=== PATIENT | female | born 1990 | race Caucasian/White ===

== ENCOUNTER 2019-06-16 12:57 | Observation (INO) ==
[2019-06-16 14:19] LABS: Amphetamine Screen,Urine Negative ng/mL (Cutoff=1000); Barbiturate Screen,Urine Negative ng/mL (Cutoff=200); Benzodiazepines Screen,Urine Negative ng/mL (Cutoff=200); Cannabinoid Screen,Urine Negative ng/mL (Cutoff = 50); Cocaine Screen,Urine Negative ng/mL (Cutoff= 300); Opiate Screen,Urine Negative ng/mL (Cutoff=300); Phencyclidine Screen,Urine Negative ng/mL (Cutoff=25)
== END 2019-06-16 15:03 | disposition home or self-care (01) ==
LOC: 1NENULAB
PROVIDERS: ADMIT Advanced Practice Midwife; ATTEND Advanced Practice Midwife

== ENCOUNTER 2019-07-09 17:55 | Observation (INO) ==
[2019-07-09 19:21] LABS: Bilirubin,Urine Negative (Negative); Blood,Urine Moderate (Negative); Clarity,Urine Turbid (Clear); Color,Urine Yellow (Yellow); Glucose,Urine (UA) Normal (Normal); Ketones,Urine Negative (Negative); Leukocyte Esterase,Urine Small (Negative); Nitrite,Urine Negative (Negative); Protein,Urine Negative (Neg-Trace); Urobilinogen,Urine Normal (Normal)
[2019-07-09 19:22] LABS: Bacteria,Urine Few per hpf (None-Few); Hyaline Casts,Urine Few per lpf (None-Few); Squamous Epithelial Cell,Urine Many per lpf (None-Few)
[2019-07-09 19:32] LABS: Amorphous Sediment,Urine Moderate (Few); Amphetamine Screen,Urine Negative ng/mL (Cutoff=1000); Barbiturate Screen,Urine Negative ng/mL (Cutoff=200); Benzodiazepines Screen,Urine Negative ng/mL (Cutoff=200); Cannabinoid Screen,Urine Negative ng/mL (Cutoff = 50); Cocaine Screen,Urine Negative ng/mL (Cutoff= 300); Opiate Screen,Urine Negative ng/mL (Cutoff=300); Phencyclidine Screen,Urine Negative ng/mL (Cutoff=25)
== END 2019-07-09 20:51 | disposition home or self-care (01) ==
LOC: 1NENULAB
PROVIDERS: ADMIT Student in an Organized Health Care Education/Training Program; ATTEND Student in an Organized Health Care Education/Training Program

== ENCOUNTER 2019-07-10 02:31 | Observation (INO) | END 2019-07-10 07:03 | disposition home or self-care (01) | LOC: 1NENULAB | PROVIDERS: ADMIT Advanced Practice Midwife; ATTEND Advanced Practice Midwife ==

== ENCOUNTER 2019-07-13 14:17 | Observation (INO) ==
[2019-07-13 15:41] LABS: Amphetamine Screen,Urine Negative ng/mL (Cutoff=1000); Barbiturate Screen,Urine Negative ng/mL (Cutoff=200); Benzodiazepines Screen,Urine Negative ng/mL (Cutoff=200); Cannabinoid Screen,Urine Negative ng/mL (Cutoff = 50); Cocaine Screen,Urine Negative ng/mL (Cutoff= 300); Opiate Screen,Urine Negative ng/mL (Cutoff=300); Phencyclidine Screen,Urine Negative ng/mL (Cutoff=25)
== END 2019-07-13 17:24 | disposition home or self-care (01) ==
LOC: 1NENULAB
PROVIDERS: ADMIT Registered Nurse; ATTEND Registered Nurse

== ENCOUNTER 2019-07-20 22:01 | Inpatient (IN) ==
[~2019-07-20 22:01] MED LIST: *HR* Nalbuphine 10 MG/ML AMPUL IVP PRN; Famotidine 20 MG/2 ML VIAL IVP PRN; Lidocaine 1% 20 ML MDV INFILT PRN; Metoclopramide 10 MG/2 ML VIAL IVP PRN; Naloxone 0.4 MG/ML INJ IVP PRN; Ondansetron 4 MG/2 ML VIAL IVP PRN
[2019-07-20] MEDS ORDERED: Ringers Solution, Lactated 1,000 ML IVC SCH (22:15)
[2019-07-20] MEDS ORDERED: miSOPROStol 25 MCG TABLET PO SCH (22:45)
[2019-07-20 22:57] LABS: Amphetamine Screen,Urine Negative ng/mL (Cutoff=1000); Barbiturate Screen,Urine Negative ng/mL (Cutoff=200); Benzodiazepines Screen,Urine Negative ng/mL (Cutoff=200); Cannabinoid Screen,Urine Negative ng/mL (Cutoff = 50); Cocaine Screen,Urine Negative ng/mL (Cutoff= 300); Opiate Screen,Urine Negative ng/mL (Cutoff=300); Phencyclidine Screen,Urine Negative ng/mL (Cutoff=25)
[2019-07-20 22:59] LABS: Basophils % 0.3 %; Eosinophils # 0.1 K/mcL (0.0-0.6); Eosinophils % 0.6 %; Hematocrit 36.9 % (35.3-44.9); Hemoglobin 11.8 g/dL (11.5-15.4); Immature Granulocytes % 0.4 % (0-4); Lymphocytes % 25.9 %; Mean Corpuscular Hemoglobin 29.4 pg (28.0-33.3); Mean Platelet Volume 11.3 fL (9.4-12.4); Monocytes # 0.9 K/mcL (0.0-1.3); Monocytes % 7.7 %; Neutrophils # 7.6 K/mcL (1.6-8.9); Platelet Count 285 K/mcL (140-400); Red Blood Count 4.01 M/mcL (3.82-4.97); Segmented Neutrophils % 65.1 %; White Blood Count 11.6 K/mcL (4.3-11.1)
[2019-07-21] MEDS ORDERED: Naloxone 0.4 MG/ML INJ IVP PRN ×3 (01:40→20:12)
[2019-07-21] MEDS ORDERED: *HR* FentaNYL (PF) 100 MCG/2 ML VIAL EP ONE (01:40)
[2019-07-21] MEDS ORDERED: Ondansetron 4 MG/2 ML VIAL IVP PRN ×2 (01:40→20:12)
[2019-07-21] MEDS ORDERED: Ropivacaine/PF 0.2% 20 ML VIAL EP ONE (01:40)
[2019-07-21] MEDS ORDERED: EPHEDrine 50 MG/ML VIAL IVP PRN (01:40)
[2019-07-21] MEDS ORDERED: Ropivacaine/PF 0.2% 20 ML VIAL ONE (02:09)
[2019-07-21] MEDS ORDERED: *HR* FentaNYL (PF) 100 MCG/2 ML VIAL ONE ×2 (02:09→16:00)
[2019-07-21] MEDS: Epidural Premix (fent/bupiv) 110 ML EP SCH ×2 (02:40→11:09)
[2019-07-21] MEDS ORDERED: Oxytocin 20 units/ LR 1000 mL 20 UNIT/1,000 ML BAG IVC SCH ×3 (03:15→20:12)
[2019-07-21] MEDS ORDERED: CeFAZolin Premix DUPLEX 2,000 MG/50 ML BAG IVPB ONE (15:12)
[2019-07-21] MEDS ORDERED: Azithromycin 500 MG in 0.9 % Sodium Chloride 250 ML IVPB ONE (15:15)
[2019-07-21] MEDS ORDERED: *HR* Oxytocin 10 UNIT/ML VIAL IM ONE (15:28)
[2019-07-21] MEDS ORDERED: Chloroprocaine/PF 20 ML VIAL INFILT ONE (15:37)
[2019-07-21] MEDS ORDERED: Ringers Solution, Lactated 1,000 ML ONE (15:54)
[2019-07-21] MEDS ORDERED: *HR* Midazolam HCl 2 MG/2 ML VIAL ONE (15:59)
[2019-07-21] MEDS ORDERED: *HR* Morphine Sulfate/PF 10 MG/10 ML AMPUL ONE (16:26)
[2019-07-21] MEDS ORDERED: Acetaminophen IV 1,000 MG/100 ML INFUS..BTL IVPB ONE (17:26)
[2019-07-21] MEDS ORDERED: *HR* HYDROmorphone (PF) 1 MG/ML SYRINGE IVP PRN ×3 (17:26→20:12)
[2019-07-21] MEDS ORDERED: *HR* OxyCODONE/APAP 5/325 TABLET PO PRN ×2 (17:41→20:12)
[2019-07-21] MEDS ORDERED: Ibuprofen 400 MG TABLET PO PRN (17:41)
[2019-07-21] MEDS ORDERED: Morphine Sulfate 2 MG/ML SYRINGE IVP PRN ×2 (17:41→20:12)
[2019-07-21] MEDS ORDERED: Ringers Solution, Lactated 1,000 ML IVC SCH (20:12)
[2019-07-21] MEDS ORDERED: Simethicone 80 MG TAB.CHEW PO PRN (20:12)
[2019-07-21] MEDS ORDERED: Metoclopramide 10 MG/2 ML VIAL IVP PRN (20:12)
[2019-07-21] MEDS ORDERED: Sennosides 8.6 MG TABLET PO PRN (20:12)
[2019-07-21] MEDS ORDERED: Rho Immune Globulin 1,500 UNIT SYRINGE IM ONE (20:12)
[2019-07-22] MEDS: Ibuprofen 400 MG TABLET PO PRN ×2 (04:26→11:54)
[2019-07-22] MEDS: metroNIDAZOLE 500 MG TABLET PO SCH ×2 (07:41→19:56)
[2019-07-22] MEDS: Prenatal Vit/FA 1 EACH TABLET PO SCH (07:41)
[2019-07-22] MEDS: cephALEXin 500 MG CAPSULE PO SCH ×2 (07:42→19:58)
[2019-07-22 10:00] LABS: Basophils % 0.2 %; Eosinophils # 0.1 K/mcL (0.0-0.6); Eosinophils % 0.3 %; Hematocrit 32.8 % (35.3-44.9); Hemoglobin 10.5 g/dL (11.5-15.4); Immature Granulocytes % 0.6 % (0-4); Lymphocytes # 1.7 K/mcL (0.6-4.6); Lymphocytes % 10.8 %; Mean Corpuscular Hemoglobin 29.2 pg (28.0-33.3); Mean Corpuscular Volume 91.4 fL (83.0-100.0); Mean Platelet Volume 11.1 fL (9.4-12.4); Monocytes # 0.9 K/mcL (0.0-1.3); Monocytes % 5.7 %; Neutrophils # 13.3 K/mcL (1.6-8.9); Platelet Count 233 K/mcL (140-400); Red Blood Count 3.59 M/mcL (3.82-4.97); Red Cell Distribution Width 13.4 % (11.5-14.5); Segmented Neutrophils % 82.4 %; White Blood Count 16.2 K/mcL (4.3-11.1)
[2019-07-22] MEDS ORDERED: Rho Immune Globulin 1,500 UNIT SYRINGE IM ONE (19:31)
[2019-07-22] MEDS: Ibuprofen 600 MG TABLET PO PRN (19:57)
[2019-07-23] MEDS: Ibuprofen 600 MG TABLET PO PRN ×2 (05:40→12:01)
[2019-07-23 08:02] VITALS: BP 110/69
[2019-07-23] MEDS: Prenatal Vit/FA 1 EACH TABLET PO SCH (08:43)
[2019-07-23] MEDS: cephALEXin 500 MG CAPSULE PO SCH (08:44)
[2019-07-23] MEDS: metroNIDAZOLE 500 MG TABLET PO SCH (08:44)
== END 2019-07-23 13:00 | disposition home or self-care (01) | DRG 540 ==
LOC: 1NENULAB → 1NENUOBS 07-21 20:06
PROVIDERS: ADMIT Advanced Practice Midwife; ATTEND Advanced Practice Midwife

== ENCOUNTER → 2022-03-26 16:00 | Observation (INO) ==
[2022-03-26 14:33] LABS: Bacteria,Urine Few per hpf (None-Few); Bilirubin,Urine Negative (Negative); Blood,Urine Trace (Negative); Clarity,Urine Turbid (Clear); Color,Urine Light-Yellow (Yellow); Glucose,Urine (UA) Normal (Normal); Ketones,Urine Negative (Negative); Leukocyte Esterase,Urine Moderate (Negative); Mucus,Urine Few per lpf (None-Few); Nitrite,Urine Negative (Negative); Protein,Urine Trace mg/dL (Neg-Trace); RBC,Urine 15-30 per hpf (0-3); Specific Gravity,Urine 1.017 (1.010-1.025); Squamous Epithelial Cell,Urine Many per hpf (None-Few); Urobilinogen,Urine Normal (Normal)
[2022-03-26 15:08] LABS: Basophils # 0.1 K/mcL (0.0-0.2); Basophils % 0.3 %; Eosinophils # 0.1 K/mcL (0.0-0.6); Eosinophils % 0.8 %; Hematocrit 36.1 % (35.3-44.9); Hemoglobin 12.3 g/dL (11.5-15.4); Immature Granulocytes % 0.7 % (0-4); Lymphocytes # 2.6 K/mcL (0.6-4.6); Lymphocytes % 17.8 %; Mean Corpuscular HGB Conc 34.1 g/dL (31.6-35.5); Mean Corpuscular Hemoglobin 32.3 pg (28.0-33.3); Mean Corpuscular Volume 94.8 fL (83.0-100.0); Mean Platelet Volume 10.5 fL (9.4-12.4); Monocytes # 0.9 K/mcL (0.0-1.3); Monocytes % 5.9 %; Neutrophils # 10.7 K/mcL (1.6-8.9); Platelet Count 233 K/mcL (140-400); Red Blood Count 3.81 M/mcL (3.82-4.97); Red Cell Distribution Width 12.5 % (11.5-14.5); Segmented Neutrophils % 74.5 %; White Blood Count 14.4 K/mcL (4.3-11.1)
[~2022-03-26 16:00] MED LIST changes: -*HR* Nalbuphine 10 MG/ML AMPUL IVP PRN; -Famotidine 20 MG/2 ML VIAL IVP PRN; -Lidocaine 1% 20 ML MDV INFILT PRN; -Metoclopramide 10 MG/2 ML VIAL IVP PRN; -Naloxone 0.4 MG/ML INJ IVP PRN; -Ondansetron 4 MG/2 ML VIAL IVP PRN; +Ringers Solution, Lactated 1,000 ML IVC ONE
== END | disposition home or self-care (01) ==
LOC: 1NENULAB
PROVIDERS: ADMIT Advanced Practice Midwife; ATTEND Advanced Practice Midwife

== ENCOUNTER → 2022-04-20 20:20 | Observation (INO) ==
[2022-04-20 18:17] LABS: Bacteria,Urine Few per hpf (None-Few); Bilirubin,Urine Negative (Negative); Blood,Urine Trace (Negative); Clarity,Urine Clear (Clear); Color,Urine Colorless (Yellow); Glucose,Urine (UA) Normal (Normal); Ketones,Urine Negative (Negative); Leukocyte Esterase,Urine Negative (Negative); Nitrite,Urine Negative (Negative); Protein,Urine Negative (Neg-Trace); RBC,Urine 0-3 per hpf (0-3); Specific Gravity,Urine 1.006 (1.010-1.025); Squamous Epithelial Cell,Urine Few per hpf (None-Few); Urobilinogen,Urine Normal (Normal); WBC,Urine 0-3 per hpf (0-3)
[2022-04-20 18:27] LABS: Basophils % 0.2 %; Eosinophils # 0.1 K/mcL (0.0-0.6); Eosinophils % 0.7 %; Hematocrit 35.9 % (35.3-44.9); Hemoglobin 12.4 g/dL (11.5-15.4); Immature Granulocytes % 0.5 % (0-4); Lymphocytes % 20.7 %; Mean Corpuscular HGB Conc 34.5 g/dL (31.6-35.5); Mean Corpuscular Hemoglobin 31.7 pg (28.0-33.3); Mean Corpuscular Volume 91.8 fL (83.0-100.0); Mean Platelet Volume 10.5 fL (9.4-12.4); Monocytes # 1.1 K/mcL (0.0-1.3); Monocytes % 7.6 %; Neutrophils # 10.3 K/mcL (1.6-8.9); Platelet Count 221 K/mcL (140-400); Red Blood Count 3.91 M/mcL (3.82-4.97); Red Cell Distribution Width 12.4 % (11.5-14.5); Segmented Neutrophils % 70.3 %; White Blood Count 14.7 K/mcL (4.3-11.1)
[~2022-04-20 20:20] MED LIST changes: +*HR* HYDROcodone/Acet 5/325 mg TABLET PO PRN; +Acetaminophen 325 MG TABLET PO PRN; +Ondansetron 4 MG/2 ML VIAL IVP PRN; +Ondansetron ODT 4 MG TAB.RAPDIS SL ONE; -Ringers Solution, Lactated 1,000 ML IVC ONE; +Ringers Solution, Lactated 1,000 ML IVC SCH
== END | disposition home or self-care (01) ==
LOC: 1NENULAB
PROVIDERS: ADMIT Advanced Practice Midwife; ATTEND Advanced Practice Midwife

== ENCOUNTER → 2022-04-28 05:45 | Observation (INO) | END | disposition home or self-care (01) | LOC: 1NENULAB | PROVIDERS: ADMIT Registered Nurse; ATTEND Registered Nurse ==

== ENCOUNTER → 2022-05-12 16:55 | Observation (INO) | END | disposition home or self-care (01) | LOC: 1NENULAB | PROVIDERS: ADMIT Advanced Practice Midwife; ATTEND Advanced Practice Midwife ==

== ENCOUNTER → 2022-05-21 16:53 | Observation (INO) ==
[~2022-05-21 16:53] MED LIST changes: -*HR* HYDROcodone/Acet 5/325 mg TABLET PO PRN; -Acetaminophen 325 MG TABLET PO PRN; -Ondansetron 4 MG/2 ML VIAL IVP PRN; -Ondansetron ODT 4 MG TAB.RAPDIS SL ONE; -Ringers Solution, Lactated 1,000 ML IVC SCH; +Terconazole Vag SUPP 80 MG SUPP.VAG VG SCH
== END | disposition home health service (06) ==
LOC: 1NENULAB
PROVIDERS: ADMIT Advanced Practice Midwife; ATTEND Advanced Practice Midwife

== ENCOUNTER → 2022-05-26 20:23 | Observation (INO) ==
[~2022-05-26 20:23] MED LIST changes: +EPHEDrine sulfate 50 MG/10 ML VIAL IVP PRN; +Epidural Premix (fent/bupiv) 110 ML EP SCH; -Terconazole Vag SUPP 80 MG SUPP.VAG VG SCH
== END | disposition home or self-care (01) ==
LOC: 1NENULAB
PROVIDERS: ADMIT Registered Nurse; ATTEND Registered Nurse

== ENCOUNTER 2022-05-28 06:11 | Inpatient (IN) ==
[2022-05-28] MEDS ORDERED: EPHEDrine sulfate 50 MG/10 ML VIAL IVP PRN (06:33)
[2022-05-28] MEDS ORDERED: Naloxone 0.4 MG/ML INJ IVP PRN (07:26)
[2022-05-28] MEDS ORDERED: Metoclopramide 10 MG/2 ML VIAL IVP PRN (07:26)
[2022-05-28] MEDS ORDERED: Azithromycin 500 MG in 0.9 % Sodium Chloride 250 ML IVPB PRN (07:26)
[2022-05-28] MEDS ORDERED: Famotidine 20 MG/2 ML VIAL IVP PRN (07:26)
[2022-05-28] MEDS ORDERED: Oxytocin 30 UNIT/503 ML BAG IVC SCH (07:30)
[2022-05-28 07:51] LABS: Basophils % 0.2 %; Eosinophils # 0.1 K/mcL (0.0-0.6); Hematocrit 38.1 % (35.3-44.9); Hemoglobin 13.1 g/dL (11.5-15.4); Immature Granulocytes % 0.6 % (0-4); Lymphocytes # 2.1 K/mcL (0.6-4.6); Lymphocytes % 18.7 %; Mean Corpuscular HGB Conc 34.4 g/dL (31.6-35.5); Mean Corpuscular Hemoglobin 31.7 pg (28.0-33.3); Mean Corpuscular Volume 92.3 fL (83.0-100.0); Mean Platelet Volume 10.9 fL (9.4-12.4); Monocytes # 0.8 K/mcL (0.0-1.3); Monocytes % 6.9 %; Neutrophils # 8.1 K/mcL (1.6-8.9); Platelet Count 196 K/mcL (140-400); Red Blood Count 4.13 M/mcL (3.82-4.97); Red Cell Distribution Width 13.2 % (11.5-14.5); Segmented Neutrophils % 72.6 %; White Blood Count 11.1 K/mcL (4.3-11.1)
[2022-05-28] MEDS ORDERED: Ropivacaine/PF 0.2% 20 ML VIAL EP ONE (07:53)
[2022-05-28] MEDS ORDERED: *HR* FentaNYL (PF) 100 MCG/2 ML VIAL EP ONE (07:53)
[2022-05-28] MEDS: Ringers Solution, Lactated 1,000 ML IVC SCH ×3 (08:08→16:23)
[2022-05-28 10:42] LABS: Amphetamine Screen,Urine Negative ng/mL (Cutoff=1000); Barbiturate Screen,Urine Negative ng/mL (Cutoff=200); Benzodiazepines Screen,Urine Negative ng/mL (Cutoff=200); Cannabinoid Screen,Urine Negative ng/mL (Cutoff = 50); Cocaine Screen,Urine Negative ng/mL (Cutoff= 300); Opiate Screen,Urine Negative ng/mL (Cutoff=300); Phencyclidine Screen,Urine Negative ng/mL (Cutoff=25)
[2022-05-28] MEDS ORDERED: Ropivacaine/PF 0.2% 20 ML VIAL ONE (11:29)
[2022-05-28] MEDS ORDERED: *HR* FentaNYL (PF) 100 MCG/2 ML VIAL ONE (11:29)
[2022-05-28] MEDS: Epidural Premix (fent/bupiv) 110 ML EP SCH ×2 (12:00→23:03)
[2022-05-29] MEDS ORDERED: Ondansetron 4 MG/2 ML VIAL ONE ×2 (05:30→08:09)
[2022-05-29] MEDS: Epidural Premix (fent/bupiv) 110 ML EP SCH (05:45)
[2022-05-29] MEDS ORDERED: *HR* FentaNYL (PF) 100 MCG/2 ML VIAL ONE (05:58)
[2022-05-29] MEDS ORDERED: *HR* Ropivacaine/PF 0.5% 20 ML VIAL ONE (05:58)
[2022-05-29] MEDS ORDERED: Lidocaine/EPI 1:200k 2% PF 20 ML VIAL ONE (07:56)
[2022-05-29] MEDS ORDERED: Ketamine *HR* 500 MG/10 ML MDV ONE (08:01)
[2022-05-29] MEDS ORDERED: Ketorolac 30 MG/ML VIAL ONE (08:10)
[2022-05-29] MEDS ORDERED: Acetaminophen IV 1,000 MG/100 ML BAG IVPB ONE (08:16)
[2022-05-29] MEDS ORDERED: *HR* Morphine Sulfate/PF 10 MG/10 ML AMPUL ONE (08:20)
[2022-05-29] MEDS ORDERED: Simethicone 80 MG TAB.CHEW PO PRN (11:44)
[2022-05-29] MEDS ORDERED: *HR* OxyCODONE Immed Rel 5 MG TABLET PO PRN (11:44)
[2022-05-29] MEDS ORDERED: Ondansetron 4 MG/2 ML VIAL IVP PRN (11:44)
[2022-05-29] MEDS ORDERED: Oxytocin 30 UNIT/503 ML BAG IVC SCH (11:44)
[2022-05-29] MEDS ORDERED: Ringers Solution, Lactated 1,000 ML IVC SCH (11:44)
[2022-05-29] MEDS ORDERED: Metoclopramide 10 MG/2 ML VIAL IVP PRN (11:44)
[2022-05-29] MEDS ORDERED: Rho Immune Globulin 1,500 UNIT SYRINGE IM ONE (11:44)
[2022-05-29] MEDS: Acetaminophen 325 MG TABLET PO SCH ×2 (11:58→20:08)
[2022-05-29] MEDS: Ibuprofen 600 MG TABLET PO SCH ×3 (13:42→23:54)
[2022-05-29] MEDS: metroNIDAZOLE 500 MG TABLET PO SCH ×2 (15:00→20:09)
[2022-05-29] MEDS: cephALEXin 500 MG CAPSULE PO SCH ×2 (15:00→20:07)
[2022-05-30 04:51] VITALS: TEMP 97.8; O2SAT 97
[2022-05-30 04:56] LABS: Basophils % 0.1 %; Eosinophils # 0.1 K/mcL (0.0-0.6); Eosinophils % 0.4 %; Hematocrit 29.9 % (35.3-44.9); Immature Granulocytes % 0.5 % (0-4); Lymphocytes # 2.3 K/mcL (0.6-4.6); Lymphocytes % 10.9 %; Mean Corpuscular HGB Conc 33.8 g/dL (31.6-35.5); Mean Corpuscular Hemoglobin 32.1 pg (28.0-33.3); Mean Corpuscular Volume 94.9 fL (83.0-100.0); Mean Platelet Volume 10.9 fL (9.4-12.4); Monocytes # 1.4 K/mcL (0.0-1.3); Monocytes % 6.4 %; Platelet Count 198 K/mcL (140-400); Red Blood Count 3.15 M/mcL (3.82-4.97); Red Cell Distribution Width 13.5 % (11.5-14.5); Segmented Neutrophils % 81.7 %
[2022-05-30 04:57] LABS: Hemoglobin 10.1 g/dL (11.5-15.4); Neutrophils # 17.6 K/mcL (1.6-8.9); White Blood Count 21.5 K/mcL (4.3-11.1)
[2022-05-30] MEDS: Acetaminophen 325 MG TABLET PO SCH ×2 (06:51→14:17)
[2022-05-30] MEDS: Ibuprofen 600 MG TABLET PO SCH ×2 (06:51→14:16)
[2022-05-30] MEDS ORDERED: Prenatal Vit/FA 1 EACH TABLET PO SCH (09:00)
[2022-05-30] MEDS: metroNIDAZOLE 500 MG TABLET PO SCH ×2 (10:01→14:52)
[2022-05-30] MEDS: cephALEXin 500 MG CAPSULE PO SCH ×2 (10:01→14:52)
[2022-05-30 12:42] VITALS: BP 96/62; PULSE 96
[2022-05-30] MEDS ORDERED: Rho Immune Globulin 1,500 UNIT SYRINGE IM ONE (14:15)
== END 2022-05-30 18:04 | disposition home or self-care (01) | DRG 788 ==
LOC: 1NENULAB 06:11 → 1NENUOBS 05-29 11:27
PROVIDERS: ADMIT Advanced Practice Midwife; ATTEND Advanced Practice Midwife